=== PATIENT | male | born 1970 | race Caucasian/White ===

== ENCOUNTER → 2019-06-26 | Outpatient (CLI) | payer BC ==
[~2019-06-26] MED LIST: ASPI81TA50 PO; CARV25TA2 PO; CHLO25TA10 PO; CLOP75TA PO; DULO60CA6 PO; EZET10TA20 PO; LOSA100T14 PO
--- NOTE | 2019-06-26 16:11 | KCIC ---
MRI cervical spine without contrast HISTORY: Neck pain, bilateral shoulder pain. FINDINGS: Craniocervical junction intact. 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 Mild endplate bony edema posteriorly at C6-C7 from degenerative disc disease. Posterior cranial fossa and cervical spinal cord are unremarkable. Paraspinal tissues are unremarkable. Diffuse degenerative disc desiccation is present throughout the cervical spine. Disc disease is described in detail below. C2-C3: Shallow disc bulge. Mild left facet spurring. No spinal canal or neural foraminal stenosis. C3-C4: Moderate disc bulge. Left greater than right uncovertebral spurring. Left facet hypertrophy. Moderate left neural foraminal stenosis. Mild right neural foraminal stenosis. Disc bulge abuts the ventral spinal cord and contributes to moderate spinal canal stenosis dural sac diameter 8 mm. C4-C5: Marked disc height loss, moderate disc bulge, vertebral endplate spurring, and uncovertebral spurring. Disc bulge abuts the ventral spinal cord and contributes to moderate spinal canal stenosis dural sac diameter is 8 mm. Moderate left neural foraminal stenosis. Mild-moderate right neural foraminal stenosis. C5-C6: Mild left eccentric disc bulge, vertebral endplate spurring, uncovertebral spurring. Mild left neural foraminal stenosis. Right neural foramen patent. Mild spinal canal stenosis dural sac diameter 10 mm. C6-C7: Moderate disc bulge, vertebral endplate spurring and bulky uncovertebral spurs. Mild ligament flavum thickening. Disc bulge abuts the ventral spinal cord and contributes to moderate spinal canal stenosis dural sac diameter 7.5 mm. There are severe neural foraminal stenoses. C7-T1: Shallow disc bulge. No spinal canal or neural foraminal stenosis. IMPRESSION: Cervical disc disease and arthritic change with spinal canal and neural foraminal stenoses. The greatest degree of spinal canal and neural foraminal stenosis is at C6-C7. See discussion above. Electronically signed by: Cesar Oropeza MD (06/26/2019 4:08 PM) [id number]
== END | disposition home or self-care (01) ==
LOC: KCIC MRI 15:16
PROVIDERS: ATTEND Nurse Practitioner Family
DX: M48.02 Spinal stenosis, cervical region (principal); M50.30 Other cervical disc degeneration, unspecified cervical region; M47.812 Spondylosis without myelopathy or radiculopathy, cervical region; M50.21 Other cervical disc displacement, high cervical region; M89.38 Hypertrophy of bone, other site; M46.02 Spinal enthesopathy, cervical region
CPT/HCPCS: 72141

== ENCOUNTER → 2019-07-09 | Outpatient (CLI) | payer BC ==
--- NOTE | 2019-07-09 12:58 | PAIN ---
DATE OF SERVICE: 07/09/2019 INITIAL CONSULTATION FOR PAIN CLINIC CHIEF COMPLAINT: Neck and bilateral upper extremity pain, right greater than left. HISTORY OF PRESENT ILLNESS: This is a 49-year-old male who presents with history of pain in the base of the neck and shoulders for about 9 months. The patient reports no specific injury that he is aware of, but just with daily wear and tear. 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 The patient reports he used to work out quite a bit as well some days in his local gym. The patient reports he has had to decrease this over the past several months because of the pain. The patient reports the pain at the base of neck and shoulders, right greater than left, posterior deltoid, base of the neck and shoulders, anterior deltoid on the right anterior bicep, into the arm with tingling and numbness in the fingers, especially the thumb and first finger on the right side. The patient reports some on the left side as well, mostly in the back of the hand. The patient reports the pain is constant, sharp, stabbing, shooting, throbbing with radiating pain and tingling, intermittent in intensity, but always present. The patient reports it is worse with activity, reaching over his head with his hands, also aching and burning quality in the neck. The patient reports it awakens him from sleep multiple times at night, does not affect his bowel or bladder control, but does affect his ability to walk and perform duties at work. The patient has tried Aleve, Advil, ibuprofen, Tylenol, all of which have been only minimally helpful. The patient reports he has not had any formal physical therapies or other treatments at this time. He is doing some stretching on his own as noted and still trying to work out, but only very rarely now because of the pain. The patient rates his disability rating from 0-10, 10 being the worst, is a 10 with recreational activities, 7 with family home responsibilities, social activity, 8 with occupation and sexual behavior and 6 with self-care and life support activities. The patient did have an MRI scan of the cervical spine showing cervical disk disease and arthritic changes in spinal canal and neural foraminal stenosis, greatest degree of spinal canal and neural foraminal stenosis at C6-C7 with moderate disk bulge, C5-C6 shows mild left eccentric disk bulge and mild left neural foraminal stenosis at C4-C5 shows moderate disk height loss and moderate disk bulge with moderate spinal canal stenosis, C3-C4 shows moderate disk bulge as well with moderate left neural foraminal stenosis, left greater than right uncovertebral spurring with a disk abutting the ventral spinal cord and contribute to [id number] spinal canal stenosis. PAST MEDICAL HISTORY: Significant for hypertension, dizziness, hiatal hernia, coronary artery disease with stents placed, headaches, arthritis, depression. PAST SURGICAL HISTORY: Surgeries include right lower quadrant inguinal hernia repair x 3, hiatal hernia repair as well, left knee scope, right shoulder scope, heart stents, tonsillectomy, right thumb surgery and I and D of the right thigh in the past. CURRENT MEDICATIONS: Include Plavix, losartan, carvedilol, chlorthalidone, Cymbalta, Zetia and daily baby aspirin. ALLERGIES: The patient has no known drug allergies. FAMILY HISTORY: Significant for coronary artery disease. SOCIAL HISTORY: The patient does not drink alcohol, does not smoke, does not use any illegal, illicit or recreational drugs. He is , lives with his spouse, has one child, living at home, lives locally in [place], [place]. REVIEW OF SYSTEMS: The patient's review of systems is positive for those items mentioned in history of present illness. All systems reviewed and otherwise negative. It is complete, full and well documented on the patient's chart. PHYSICAL EXAMINATION: VITAL SIGNS: The patient's blood pressure is 133/90, pulse 69, respirations 16, temperature 98.0 degrees Fahrenheit, height is 5 feet 9 inches and weight is 223 pounds. GENERAL: The patient is awake, alert, oriented, appropriate, very pleasant demeanor. HEENT: Head shows normocephalic, atraumatic. Extraocular movements are intact and symmetrical. The patient is wearing eyeglasses. Oral cavity: Mucous membranes moist and pink. Dentition is intact. NECK: Shows anterior throat supple without palpable lymphadenopathy noted. Swallow reflex symmetrical. CHEST: Shows normal on inspection. Breath sounds are clear to auscultation bilaterally. HEART: Shows S1, S2 clear. No murmurs auscultated. ABDOMEN: Soft, nontender, nondistended. No palpable organomegaly is noted. No rebound or guarding demonstrated. BACK: Shows spine grossly in the midline. Normal appearing thoracic kyphosis, some minor flattening of lumbar lordotic curvature. The patient's cervical and paraspinous muscle shows symmetrical on inspection, on palpation shows some moderate tenderness diffusely bilaterally with very firm musculature, which is very tight, but without specific trigger points noted throughout the upper, middle and lower distribution of paraspinous musculature, through into the superior medial trapezius bilaterally as well, somewhat more tender on the right than the left with palpation, but no trigger points or radiation demonstrated. The patient shows some limited rotation of motion with guarding with right and left lateral rotation, but does rotate the cervical spine past 45 degrees right and left as well as full extension, full forward flexion again deliberate and guarded motion with all range of motion directions. EXTREMITIES: Upper extremities show deep tendon reflexes 2+ in the biceps, triceps tendons. 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 This is true with shoulder shrug without loss of strength on resistance, but with significant pain on the right side reported, also true with abduction of shoulder to 90 degrees, again no loss of strength on resistance bilaterally, but significant pain in the base of the neck and right shoulder and into the forearm and biceps on the right only. Upper extremities are warm and dry to touch, equal in color and appearance. No edema is noted. The patient's peripheral pulses are 2+ radial bilaterally. The patient's skin shows warm and dry, good turgor. No edema. No sores, rashes or bruising throughout. IMPRESSION: 1. This is a 49-year-old male with approximately 9- to 10-month history of pain in the base of neck, bilateral shoulders, right upper extremity greater than left in a radicular fashion. 2. MRI scan of the cervical spine as noted. 3. Hypertension. 4. Arthritis. 5. Coronary artery disease with stent placement and anticoagulation therapy. PLAN: Options were discussed with the patient including conservative medical management, physical therapies, interventional techniques and he would like to pursue interventional techniques. We discussed a cervical epidural steroid injection using description as well as anatomical models to describe the procedure. The patient will first wait for clearance from his primary care physician. We will await clearance to hold the Plavix for 7 days. The patient also requesting sedation for the procedure. We discussed this in detail and we will have a 10 mg Valium to be taken 1 hour before the procedure. The patient will have a transit driver to take him to and from an appointment next visit as well. If deemed safe and appropriate, we will have the patient hold his Plavix once clearance from primary care physician is obtained and we will proceed with an injection at that time. Medrol Dosepak was given to the patient with instructions, side effects to be aware of as well. PAIGE MEDEIROS MD DR: JENNIFER/ruby JOB#: [id number] / [id number] JONNY Badillo APRN
== END ==
LOC: PNCL 10:44
PROVIDERS: ATTEND Anesthesiology
DX: I25.10 Atherosclerotic heart disease of native coronary artery without angina pectoris (principal); I10 Essential (primary) hypertension; M13.812 Other specified arthritis, left shoulder; M13.811 Other specified arthritis, right shoulder
CPT/HCPCS: G0463

== ENCOUNTER → 2019-07-21 | Outpatient (CLI) | payer BC ==
[~2019-07-21] MED LIST changes: +IOHEXOL 180 MG/ML 10 ML VIAL. ONE; +methylPREDNISolone ACETATE 40 MG/ML VIAL. ONE; +methylPREDNISolone ACETATE 80 MG/ML VIAL. ONE
--- NOTE | 2019-07-21 10:44 | PAIN ---
DATE OF SERVICE: 07/21/2019 PROGRESS NOTE FOR PAIN CLINIC DIAGNOSES: Cervical radiculopathy with cervical degenerative disk disease and cervical spinal stenosis. HISTORY OF PRESENT ILLNESS: The patient is a 49-year-old male who returns for followup status post initial evaluation. The patient has had clearance now to hold his Plavix. He has been off that for 7 days now. Also, we gave him a 10 mg of Valium to take prior to procedure for anxiety. The patient reports that he is doing fairly well. Pain is about the same base of neck and shoulders, upper extremities. Medrol Dosepak was only helpful for the first few days, but overall not much improvement. The patient reports still significant pain rated an 8 on a scale of 10 at its worst over the past week, 8 on average, 7 at its least and is an 8 today. The patient reports tingling, stabbing, aching, sharp, tight, dull, shooting across the back into the upper extremities as previously, radiating, becoming more constant, more severe with activity. The patient reports no loss of motor function, no new motor or sensory deficits. PHYSICAL EXAMINATION: VITAL SIGNS: The patient's blood pressure is 143/97, pulse 58, respirations 16, temperature 98.1 degrees Fahrenheit, weight is 222 pounds. GENERAL: The patient is awake, alert, oriented, appropriate, very pleasant demeanor. HEENT: Shows normocephalic, atraumatic. Extraocular movements are intact and symmetrical. Oral cavity: Mucous membranes moist and pink. Dentition is intact. NECK: Shows anterior throat supple without palpable lymphadenopathy noted. Swallow reflex symmetrical. CHEST: Shows normal on inspection. Breath sounds clear to auscultation bilaterally. HEART: Shows S1, S2 clear. No murmurs auscultated. ABDOMEN: Soft, nontender, nondistended. No palpable organomegaly is noted. No rebound or guarding demonstrated. BACK: Shows spine grossly in the midline. Normal appearing thoracic kyphosis, some minor flattening of lumbar lordotic curvature and normal cervical lordotic curvature. Cervical paraspinous muscle shows symmetrical on inspection, on palpation shows some [id number] tenderness diffusely bilaterally, but only diffusely without significant radiation. The patient shows good rotation of motion with some minor guarding with extension, less so with forward flexion. EXTREMITIES: The patient's upper extremities show deep tendon reflexes 2+ in the biceps and triceps tendons. 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 Peripheral pulses are 2+ radial. No peripheral edema is noted bilaterally. The patient has tattooing again on the upper back, neck and upper extremities as previous. Options were discussed with the patient. The patient's old chart was reviewed as his current medication regimen updated. Current review of systems updated today as well. We will proceed with a cervical epidural steroid injection today with fluoroscopic guidance. Risks were again discussed including, but not limited to bleeding, infection, possibility of epidural hematoma, subsequent neurological compromise, dural puncture, headaches, spinal cord and/or nerve damage, side effects of steroid medication and poor results regarding pain control. The patient understands and wished to proceed. The patient will return to clinic in approximately 2 weeks for followup. He was counseled on return appointment, activity level and side effects to be aware of. DIAGNOSES: Cervical radiculopathy with cervical degenerative disk disease and cervical spinal stenosis. PROCEDURE: Cervical epidural steroid injection, translaminar approach C6-C7 level using C-arm fluoroscopic guidance under sterile prep and drape using local anesthetic. MEDICATION INJECTED: A total of 120 mg Depo-Medrol plus 5 mL of preservative-free normal saline and 2 mL of contrast. CONDITION AT DISCHARGE: Stable. The patient tolerated the procedure well, had no complications. PAIGE MEDEIROS MD DR: JENNIFER/ruby JOB#: [id number] / [id number]
== END ==
LOC: PNCL 09:20
PROVIDERS: ATTEND Anesthesiology
DX: M50.123 Cervical disc disorder at C6-C7 level with radiculopathy (principal); M48.061 Spinal stenosis, lumbar region without neurogenic claudication
CPT/HCPCS: 62321; J1030; J1040; Q9965

== ENCOUNTER → 2019-09-29 | Outpatient (CLI) | payer BC ==
[~2019-09-29] MED LIST changes: +CYCL10TA2 PO
--- NOTE | 2019-09-29 09:09 | PAIN ---
DATE OF SERVICE: 09/29/2019 PROGRESS NOTE FOR PAIN CLINIC DIAGNOSES: Cervical radiculopathy with cervical degenerative disk disease and cervical spinal stenosis. HISTORY OF PRESENT ILLNESS: The patient is a 49-year-old male who returns for followup status post cervical epidural steroid injection x 1 on 07/21/2019. The patient reports he did very well with about 6 days of almost complete relief. The patient reports the pain returned in the base of neck and shoulders, upper extremities bilaterally, somewhat worse on the left than the right, but is becoming more noticeable at work with physical exercise and strenuous exercises with upper extremities. The patient reports pain is 8 on a scale of 10 at its worst over the past week, 5 on average, 5 at its least and is a 5 today. The patient also has a constant headache when the pain is at its worst and ringing in the ears at times. The patient reports pain is tight and burning in the shoulders, upper and lower neck into the bilateral extremities, more on the left than the right, but present bilaterally, becoming more constant with activity and working. The patient reports it awakens him from sleep occasionally, but not every night. The patient reports initially he was doing much better with doing work activities, especially household activities and sleeping better. The patient reports no new motor or sensory deficits, no new changes. PHYSICAL EXAMINATION: VITAL SIGNS: The patient's blood pressure 121/88, pulse 77, respirations 16, temperature 98.3 degrees Fahrenheit, weight is 225 pounds. GENERAL: The patient is awake, alert, oriented, appropriate, very pleasant demeanor. HEENT: Shows normocephalic, atraumatic. Extraocular movements are intact and symmetrical. Oral cavity: Mucous membranes moist and pink. Dentition is intact. NECK: Shows anterior throat supple without palpable lymphadenopathy noted. Swallow reflex symmetrical. CHEST: Shows normal on inspection. Breath sounds are clear. No rales, rhonchi or wheezes auscultated. HEART: Shows S1, S2 clear. No murmurs auscultated. ABDOMEN: Soft, nontender, nondistended. No palpable organomegaly is noted. No rebound or guarding demonstrated. BACK: Shows spine grossly in the midline. Cervical paraspinous muscle shows symmetrical on inspection, with palpation shows some moderate tenderness diffusely throughout the upper, middle and lower distribution of paraspinous muscles bilaterally going diffusely without significant radiation. The patient has good rotational motion of the cervical spine, both laterally as well as extension and flexion without significant increase in pain as well. EXTREMITIES: Upper extremities show deep tendon reflexes at 2+ in the biceps and triceps tendons. 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 Peripheral pulses 2+ radial. No peripheral edema is noted bilaterally. Options were discussed with the patient. The patient's old chart was reviewed as his current medication regimen updated. Current review of systems updated today as well and we will proceed with a cervical epidural steroid injection second in this series today with fluoroscopic guidance. Risks were again discussed including, but not limited to bleeding, infection, possibility of epidural hematoma, subsequent neurological compromise, dural puncture, headaches, spinal cord and/or nerve damage, side effects of steroid medication and poor results regarding pain control. The patient understands and wished to proceed. The patient will return to clinic in approximately 2 weeks for followup. He was counseled on return appointment, activity level and side effects to be aware of. DIAGNOSES: Cervical radiculopathy with cervical spinal stenosis and cervical degenerative disk disease. PROCEDURE: Cervical epidural steroid injection, translaminar approach C6-C7 level using C-arm fluoroscopic guidance under sterile prep and drape using local anesthetic. MEDICATION INJECTED: A total of 120 mg Depo-Medrol plus 5 mL of preservative-free normal saline and 2 mL of contrast. CONDITION AT DISCHARGE: Stable. The patient tolerated procedure well, had no complications. PAIGE MEDEIROS MD DR: JENNIFER/ruby JOB#: [id number] / [id number]
== END ==
LOC: PNCL 08:19
PROVIDERS: ATTEND Anesthesiology
DX: M50.123 Cervical disc disorder at C6-C7 level with radiculopathy (principal); M48.02 Spinal stenosis, cervical region
CPT/HCPCS: 62321; J1030; J1040; Q9965

== ENCOUNTER → 2019-12-01 | Outpatient (CLI) | payer BC ==
[~2019-12-01] MED LIST changes: -IOHEXOL 180 MG/ML 10 ML VIAL. ONE; -methylPREDNISolone ACETATE 40 MG/ML VIAL. ONE; -methylPREDNISolone ACETATE 80 MG/ML VIAL. ONE
--- NOTE | 2019-12-01 08:54 | PDOC ---
Progress Note - Pain Clinic Date of Service: DOS: DATE: 12/01/19 TIME: 08:48 Diagnosis: Dx: Cervical radiculopathy with cervical degenerative disease and cervical spinal stenosis Bilateral knee joint pain History or Present Illness: HPI: 49-year-old male returns for follow-up status post cervical epidural steroid injection x2. Most recently on September 29, 2019. Patient ports about 70% improvement for the first 2 weeks or so and pain returning slowly mostly when he is working using his upper extremities shoulders hands arms and repetitive motions. Patient reports doing much better initially but now the pain is returning base the neck and shoulder especially in the left arm is radiating to the thumb first and second fingers in the left arm with tingling numbness burning stabbing also aching and sharp in the neck and shoulder itself and shooting pain in the upper back with some ringing in the ears as well patient ports the pain is radiating becoming more constant more severe with activity. Patient reports generally does not awaken from sleep at night has been over the past week or so about every 6 hours. Patient reports pain is 8 on scale 10 is worse over the past week 6 on average 5 at its least and is a 6 today. Patient ports no new motor or sensory deficits other findings but does have significant pain in both the knees which he reports is becoming more noticeable more on the left. Physical Exam: VS: Pressure 143/97 pulse 80 respirations 18 temperature 97.7 F height is 5 feet 9 inches weight is 221 pounds PE: PHYSICAL EXAMINATION: GENERAL: The patient is awake, alert, oriented, appropriate, very pleasant demeanor HEENT: Shows normocephalic, atraumatic. Extraocular movements are intact and symmetrical. Oral cavity: Mucous membranes moist and pink. NECK: Shows anterior throat supple without palpable lymphadenopathy noted. Swallow reflex symmetrical. CHEST: Shows normal on inspection. Breath sounds are clear bilaterally, no rales rhonchi or wheezes auscultated. HEART: Shows S1, S2 clear. No murmurs auscultated. ABDOMEN: Soft, nontender, nondistended. No palpable organomegaly is noted. No rebound or guarding demonstrated. BACK: Shows spine grossly in the midline. Normal-appearing cervical lordotic curvature. There is slightly increased thoracic kyphosis, some minor flattening of the lumbar lordotic curvature. Lumbar paraspinous muscles show symmetrical on inspection, on palpation shows some moderate tenderness diffusely throughout the upper, middle and lower distribution of the paraspinous muscles bilaterally without specific trigger points, without radiation of pain. The patient has goo d rotational motion of the lumbar spine, both laterally as well as extension and flexion without significant difficulty. No tenderness over the spinous processes, sacrum or sacroiliac regions. EXTREMITIES: upper extremities show deep tendon reflexes 2+ in the biceps and triceps tendons. 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 Peripheral pulses are 2+ radial. No peripheral edema is noted bilaterally. upper extremities are warm and dry to touch, equal in color and appearance. Shoulder shrug is strong and intact without loss of strength on resistance but with some moderate pain more on the left than the right without radiation. This is true with abduction of the shoulder to 90 degrees with significant pain in the left base of the shoulder and neck on the left only. SKIN: Shows warm and dry, good turgor. No edema. No sores, rashes or bruising throughout. Procedure: Procedure: Discussed with the patient, patient's old chart was reviewed his current medication regimen updated current review of systems updated today as well. We will preauthorize patient for a third cervical epidural steroid injection as he is doing much better initially with pain returning base neck and shoulder with the left sided clinical C6-7 radiculopathy into the left hand. Patient continue with stretching strength exercises he been taking Advil Motrin Tylenol maintain this as well. Also obtain plain films of the bilateral knees as patient is significant pain complaints in the knees with weightbearing. Turn to clinic once preauthorization is obtained will plan on translaminar cervical epidural steroid injection at the C6-7 level at that time. Medication Injected: Med Injected: None Condition at Discharge: Condition at Discharge: Condition at discharge stable. Patient will return to clinic once preauthorization is obtained also will hold Plavix for 7 days and was given Valium 10 mg to take 1 tablet prior to the procedure 1 hour. PAIGE MEDEIROS MD Dec 01, 2019 08:54
--- NOTE | 2019-12-01 09:55 | RAD ---
EXAM: Bilateral knees, 3 views. HISTORY: Pain. COMPARISON: None. FINDINGS: 3 views of both knees are obtained. There is mild bilateral tricompartment marginal spurring. There is a trace right knee effusion. There is no fracture, dislocation or subluxation. IMPRESSION: 1. Mild tricompartmental osteoporosis of both knees. 2. Trace right knee effusion. Electronically signed by: Maricarmen Espinoza MD (12/01/2019 9:52 AM) [facility]
== END | disposition home or self-care (01) ==
LOC: PNCL 08:15
PROVIDERS: ATTEND Anesthesiology
DX: M50.123 Cervical disc disorder at C6-C7 level with radiculopathy (principal); M48.02 Spinal stenosis, cervical region; M25.562 Pain in left knee; M25.561 Pain in right knee; Z79.82 Long term (current) use of aspirin; Z79.899 Other long term (current) drug therapy
CPT/HCPCS: 73562; G0463; 99212

== ENCOUNTER → 2020-04-29 | Outpatient (CLI) | payer BC ==
--- NOTE | 2020-04-29 12:22 | PDOC ---
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 Patient reports he did fairly well with these but they were short-lived only lasting for a couple months but his pain is still not as bad as it was,although it has changed and is now in the base of the neck worse on the right than the left radiating only into the shoulder but not into the upper extremity. Patient reports an 8 on scale 10 is worse over the past week 6 on average for its least and is a 6 today. Patient has been doing stretching and strength exercises with the neck and shoulders as well as heat application which is helpful but only very limited to the time he is doing the exercises and the heat applications. Patient reports it is aching and sharp tingling burning stabbing constant severe can be unbearable at times more on the right than the left and present bilaterally worse with rotation of motion of the cervical spine especially extension and and some axial loading of the cervical spine at the base with more pain in the right upper neck and shoulder at that point. 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 Patient has recently seen his neurosurgeon who is recommending conservative measures and not surgery at this time. Physical Exam: VS: Blood pressure is 124/80 pulse 56 respirations 18 temperature 98.2 F weight is 206 pounds PE: PHYSICAL EXAMINATION: GENERAL: The patient is awake, alert, oriented, appropriate, very pleasant demeanor HEENT: Shows normocephalic, atraumatic. Extraocular movements are intact and symmetrical. Oral cavity: Mucous membranes moist and pink. NECK: Shows anterior throat supple without palpable lymphadenopathy noted. Swallow reflex symmetrical. CHEST: Shows normal on inspection. Breath sounds are clear bilaterally, no rales rhonchi or wheezes auscultated. HEART: Shows S1, S2 clear. No murmurs auscultated. ABDOMEN: Soft, nontender, nondistended, obese. No palpable organomegaly is noted. No rebound or guarding demonstrated. BACK: Shows spine grossly in the midline. Normal-appearing cervical lordotic curvature. Cervical paraspinous muscles show symmetrical with inspection on palpation, show some significant tenderness in the middle and lower distribution the paraspinous muscles with deep palpation more on the right than the left but without specific trigger points without radiation of pain. Patient shows good rotation of motion but significant tenderness with extension and axial loading of the cervical spine better with forward flexion chin to chest without significant limitation. Right left lateral rotation show some significant tenderness with right lateral rotation with pain in the base of the neck and the mid neck itself as well as to the left but much more tender on the right greater than 45 degrees. There is slightly increased thoracic kyphosis, some minor flattening of the lumbar lordotic curvature. EXTREMITIES: Upper extremities show deep tendon reflexes 2+ in the biceps and triceps tendons. Motor exam is 5 on a scale of 5 with right surface miner strength, biceps and triceps flexion and 5/5 on the left. Peripheral pulses are 2+ radial. No peripheral edema is noted bilaterally. Upper extremities are warm and dry to touch, equal in color and appearance. SKIN: Shows warm and dry, good turgor. No edema. No sores, rashes or bruising throughout. Procedure: Procedure: Options were discussed with the patient. Patient's old chart was reviewed his his current medication regimen updated current review of systems updated today as well. We will preauthorize patient for bilateral cervical facet medial branch blocks under fluoroscopic guidance. Patient with increased cervicogenic pain and axial loading right greater than left but present bilaterally. The meantime patient will continue with stretching and strengthening exercises heat and massage therapies as well. Also will prescribe Zanaflex as he has had this in the past and reports good decrease in pain with it and Valium 1 tablet 4 preprocedural use on his next visit. Medication Injected: Med Injected: None Condition at Discharge: Condition at Discharge: Condition at discharge is stable. PAIGE MEDEIROS MD Apr 29, 2020 12:22
== END | disposition home or self-care (01) ==
LOC: PNCL 11:36
PROVIDERS: ATTEND Anesthesiology
DX: M47.812 Spondylosis without myelopathy or radiculopathy, cervical region (principal); M48.02 Spinal stenosis, cervical region; M50.30 Other cervical disc degeneration, unspecified cervical region; M17.0 Bilateral primary osteoarthritis of knee; Z79.82 Long term (current) use of aspirin; Z79.899 Other long term (current) drug therapy; Z98.890 Other specified postprocedural states
CPT/HCPCS: 99212; G0463

== ENCOUNTER → 2020-05-17 | Outpatient (CLI) | payer BC ==
[~2020-05-17] MED LIST changes: +BUPIVACAINE MPF 0.25% 10 ML VIAL. ONE; +IOHEXOL 180 MG/ML 10 ML VIAL. ONE; +TIZA4TAB8 PO; +methylPREDNISolone ACETATE 40 MG/ML VIAL. ONE; +methylPREDNISolone ACETATE 80 MG/ML VIAL. ONE
--- NOTE | 2020-05-17 10:50 | PDOC ---
Progress Note - Pain Clinic Date of Service: DOS: DATE: 05/17/20 TIME: 10:43 Diagnosis: Dx: Cervical degenerative disc disease with cervical spinal stenosis and cervical spondylosis History or Present Illness: HPI: 50-year-old male returns follow-up status post holding Plavix for 7 days and clearance with his primary care physician for this. Patient reports still significant pain in the neck and base the neck more on the right than the left with rotation as well as extension and some forward flexion of the cervical spine with some radiation but mostly just in the neck itself. Patient reports some pain in the left arm as well but mostly at the neck and we are waiting for preauthorization for cervical medial branch blocks which she has obtained now would like to proceed with this. Patient reports still significant pain rated 7 on scale 10 is worse over the past week 5 on average for its least is a 5 today patient was aching sharp dull tight shooting across the neck stabbing and burning radiating constant worse with repetitive motions looking upwards using his computer monitor as well as difficulty with sleeping. Patient reports no new motor or sensory deficits. Physical Exam: VS: Blood pressure is 123/81 pulse 52 respirations 18 temperature 99.2 F weight is 204 pounds PE: PHYSICAL EXAMINATION: GENERAL: The patient is awake, alert, oriented, appropriate, very pleasant demeanor HEENT: Shows normocephalic, atraumatic. Extraocular movements are intact and symmetrical. Oral cavity: Mucous membranes moist and pink. NECK: Shows anterior throat supple without palpable lymphadenopathy noted. Swallow reflex symmetrical. CHEST: Shows normal on inspection. Breath sounds are clear bilaterally. HEART: Shows S1, S2 clear. No murmurs auscultated. ABDOMEN: Soft, nontender, nondistended. No palpable organomegaly is noted. No rebound or guarding demonstrated. BACK: Shows spine grossly in the midline. Normal-appearing cervical lordotic curvature. Cervical paraspinous muscles show symmetrical with inspection on palpation some moderate tenderness with deeper palpation but without specific trigger points in the mid and lower distribution of the cervical spine bilaterally slightly more tender on the right than the left. Patient shows good rotation but guarded with right lateral rotation past 45 degrees with some fairly significant pain reported in the base and mid neck as well as with left lateral Tatian pain is present but less intense than rotating to the right. She shows good rotation motion as well as extension with some moderate pain and flexion with moderate pain bilaterally as well. EXTREMITIES: Upper extremities show deep tendon reflexes 2+ in the biceps and triceps tendons. Motor exam is 5 on a scale of 5 with right butter wrapper strength, biceps and triceps flexion and 5/5 on the left. Peripheral pulses are 2+ radial. No peripheral edema is noted bilaterally. Upper extremities are warm and dry to touch, equal in color and appearance. SKIN: Shows warm and dry, good turgor. No edema. No sores, rashes or bruising throughout. Procedure: Procedure: Options were discussed with the patient. Patient's old chart was reviewed his current medication regimen updated current review of systems updated today as well. We will proceed with bilateral cervical facet medial branch injections today. C3-4, C4-5, C5-6, C6-7 with fluoroscopy guidance. Risks were discussed including but not limited to: Bleeding, infection, possibility of epidural hematoma and subsequent neurological compromise, dural puncture, headaches, spinal cord and/or nerve damage, side effects of steroid medication, and poor results regarding pain control. Patient understands and wished to proceed. Patient return to clinic in approximate 2 weeks for follow-up, was counseled as return appointment to fill and side effects to be aware of. Medication Injected: Med Injected: Under sterile prep and drape patient in prone position using C-arm fluoroscopic guidance patient cervical spine was notified in AP view with slight craniocaudad view to visualize the waist of the cervical vertebrae bilaterally. Using 1% lidocaine skin was topically anesthetized over the waist of the vertebrae for starting on the right side at C3-4 C4-5 C5-6 and C6-7. Using 22-gauge Quincke needle was then advanced through the anesthetized area to rest in contact with the waist of the vertebral body at each level. Lateral views were then used to confirm position of the needles at the facet level and slightly posterior with contact in the region of the medial branches at each level. Stylets were removed, and 0.5 cc of contrast was injected without vascular uptake at each level with good local spread at the level of the medial branches. This was r epeated for the left side at the same levels and same technique and fluoroscopic views. Each needle showed negative aspiration and good spread of contrast. At this time each level receive 0.5 cc of bupivacaine for a total of 8 cc and total of 120 mg Depo-Medrol. [place] were removed sterile bandages were applied. Patient tolerated procedure well and had no complications. Condition at Discharge: Condition at Discharge: Condition at discharge stable, patient tolerated procedure well and had no complications. PAIGE MEDEIROS MD May 17, 2020 10:50
== END | disposition home or self-care (01) ==
LOC: PNCL 09:43
PROVIDERS: ATTEND Anesthesiology
DX: M50.30 Other cervical disc degeneration, unspecified cervical region (principal); M48.02 Spinal stenosis, cervical region; M47.812 Spondylosis without myelopathy or radiculopathy, cervical region; Z79.82 Long term (current) use of aspirin; Z79.899 Other long term (current) drug therapy; Z98.890 Other specified postprocedural states
CPT/HCPCS: 64490; 64491; 64492; J1030; J1040; J3490; Q9965

== ENCOUNTER → 2020-06-03 | Outpatient (CLI) | payer BC ==
[~2020-06-03] MED LIST changes: -BUPIVACAINE MPF 0.25% 10 ML VIAL. ONE; -IOHEXOL 180 MG/ML 10 ML VIAL. ONE; -methylPREDNISolone ACETATE 40 MG/ML VIAL. ONE; -methylPREDNISolone ACETATE 80 MG/ML VIAL. ONE
--- NOTE | 2020-06-03 15:46 | PDOC ---
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 Patient reports he did very well for about 1 month. About 80% improvement overall. Patient reports still some pain in the neck itself but much improved increasing his daily activities with distance walking doing household activities at work activities sleeping much better at night patient reports generally does not awaken from sleep at night pain in the base of the neck in the mid neck as well bilaterally patient reports left essentially equal to right still has good rotation of motion good function in the upper extremities some minor discomfort with repetitive motions or looking up or to the sides repetitively such as when he is driving or using computer. Patient ports pain can be stabbing aching and tight and shooting at times across the neck and the shoulders as well. Patient reports occasional pain in the left arm but only very infrequent patient rates his pain as a 6-7 on scale 10 is worse over the past week 3-4 and average to its least is a 3 today. Patient reports doing much better than previously still the pain is beginning to return very slightly in the neck itself. Patient reports no new motor or sensory deficits or other complaints. Physical Exam: VS: Blood pressure is 132/79 pulse 50 respirations 18 temperature 98.1 F height is 5 feet 9 inches weight is 198 pounds PE: PHYSICAL EXAMINATION: GENERAL: The patient is awake, alert, oriented, appropriate, very pleasant demeanor HEENT: Shows normocephalic, atraumatic. Extraocular movements are intact and symmetrical. Oral cavity: Mucous membranes moist and pink. Dentition is intact. NECK: Shows anterior throat supple without palpable lymphadenopathy noted. Swallow reflex symmetrical. CHEST: Shows normal on inspection. Breath sounds are clear bilaterally, no rales rhonchi wheezes auscultated. HEART: Shows S1, S2 clear. No murmurs auscultated. ABDOMEN: Soft, nontender, nondistended, obese. No palpable organomegaly is noted. BACK: Shows spine grossly in the midline. Normal-appearing cervical lordotic curvature. Cervical paraspinous muscles show symmetrical on inspection with palpation some mild tenderness diffusely in the middle and lower distribution the paraspinous muscles but only diffusely without significant radiation. Patient shows no trigger points no asymmetry. Patient shows good rotation motion cervical spine both laterally as well as full extension full forward flexion with only minor tenderness with extension. There is slightly increased thoracic kyphosis, some minor flattening of the lumbar lordotic curvature. EXTREMITIES: Upper extremities show deep tendon reflexes 2+ in the biceps and triceps tendons. Motor exam is 5 on a scale of 5 with right rib strength, biceps and triceps flexion and 5/5 on the left. Peripheral pulses are 2+ radial. No peripheral edema is noted bilaterally. Upper extremities are warm and dry to touch, equal in color and appearance. SKIN: Shows warm and dry, good turgor. No edema. No sores, rashes or bruising throughout. Procedure: Procedure: Options were discussed with the patient. Patient chart reviews his current medication regimen updated current review of systems updated today as well. We will preauthorize patient for repeat cervical facet medial branch blocks at the C3-4, C4-5, C5-6, C6-7 levels bilaterally. Patient continue with stretching and strengthening exercises and oral analgesics as currently. Also will prescribe Medrol Dosepak patient was given instructions well side effects to be aware of with the medication. Patient will return once preauthorization is obtained for bilateral cervical facet medial branch blocks. Medication Injected: Med Injected: None Condition at Discharge: Condition at Discharge: Condition at discharge is stable. PAIGE MEDEIROS MD Jun 03, 2020 15:46
== END | disposition home or self-care (01) ==
LOC: PNCL 14:27
PROVIDERS: ATTEND Anesthesiology
DX: M47.812 Spondylosis without myelopathy or radiculopathy, cervical region (principal); M48.02 Spinal stenosis, cervical region; M50.30 Other cervical disc degeneration, unspecified cervical region; M17.0 Bilateral primary osteoarthritis of knee; Z79.82 Long term (current) use of aspirin; Z79.899 Other long term (current) drug therapy; Z98.890 Other specified postprocedural states
CPT/HCPCS: 99212; G0463